=== PATIENT | male | born 1990 | race Caucasian/White ===

== ENCOUNTER 2018-11-21 10:15 | Emergency (ER) | payer MEDICAID ==
[~2018-11-21 10:15] MED LIST: BACTRIM DS TABL1 TAB PO; CLEOCIN HCL150 MG PO; MONODOX100 MG PO; NORCO 7.5/325 T1 TA1 PO; TYLENOL W/CODEI1 TAB PO; XODOL 5-300 TA1 EACH PO
[2018-11-21 10:28] VITALS: BMI 29.6
[2018-11-21] MEDS ORDERED: SULFAMETHOXAZOL1 TA3 PO (10:46)
[2018-11-21 10:56] VITALS: BP 126/72
== END 2018-11-21 10:57 | disposition home or self-care (01) ==
LOC: D.ER 10:15
DX: L02.12 Furuncle of neck (principal)

== ENCOUNTER 2018-11-28 15:40 | Emergency (ER) | payer MEDICAID ==
[~2018-11-28 15:40] MED LIST changes: +SULFAMETHOXAZOL1 TA3 PO
[2018-11-28 15:44] VITALS: BMI 29.6
[2018-11-28] MEDS ORDERED: CLEOCIN HCL300 MG PO (17:12)
[2018-11-28 17:22] VITALS: BP 133/83
== END 2018-11-28 17:23 | disposition home or self-care (01) ==
LOC: D.ER 15:40
DX: L02.11 Cutaneous abscess of neck (principal)

== ENCOUNTER 2018-12-21 12:01 | Emergency (ER) | payer MEDICAID ==
[~2018-12-21] VITALS: Ht 175.3 cm; Wt 90.9 kg
[~2018-12-21 12:01] MED LIST changes: +CLEOCIN HCL300 MG PO
[2018-12-21 12:06] VITALS: Ht 175.3 cm; Wt 90.9 kg
[2018-12-21 13:37] VITALS: BP 123/81
[2018-12-21] MEDS ORDERED: DOXYCYCLINE HY100 M2 PO (13:54)
== END 2018-12-21 14:00 | disposition home or self-care (01) ==
LOC: D.ER 12:01
DX: L02.11 Cutaneous abscess of neck (principal)

== ENCOUNTER 2019-02-15 13:58 | Emergency (ER) | payer MEDICAID ==
[~2019-02-15] VITALS: Ht 175.3 cm; Wt 95.5 kg
[~2019-02-15 13:58] MED LIST changes: +DOXYCYCLINE HY100 M2 PO
[2019-02-15 14:22] VITALS: BP 117/62; Ht 175.3 cm; Wt 95.5 kg
== END 2019-02-15 19:01 | disposition left against medical advice (07) ==
LOC: D.ER 13:58
DX: L02.11 Cutaneous abscess of neck (principal)